=== PATIENT | female | born 1945 | race Caucasian/White ===

== ENCOUNTER 2021-04-23 15:13 | Inpatient (IN) | payer MEDICARE, MEDICAID ==
[~2021-04-23] VITALS: Ht 167.6 cm; Wt 87.6 kg
[2021-04-23 15:55] LABS: Basophils # (auto) 0 10 ^3/uL (0-0.2); Basophils % (auto) 0.2 % (0.0-2.0); Eosinophils # (auto) 0.1 10 ^3/uL (0-0.8); Hematocrit 41.1 % (36.0-46.0); Hemoglobin 14.1 g/dL (12.2-16.2); Lymphocytes # (auto) 2.3 10 ^3/uL (0.4-5.4); Lymphocytes % (auto) 21.8 % (10.0-50.0); Mean Corpuscular Hemoglobin 29.8 pg (28.0-32.0); Mean Corpuscular Hgb Conc. 34.2 g/dL (32.0-36.0); Monocytes # (auto) 0.5 10 ^3/uL (0-1.3); Monocytes % (auto) 5.1 % (0.0-12.0); Neutrophils # (auto) 7.6 10 ^3/uL (1.6-8.6); Neutrophils % (auto) 71.9 % (37.0-80.0); Nucleated Red Blood Cells % 0.1 %; Platelet Count (auto) 228 10^3/uL (140-450); Red Blood Cells 4.72 10^6/uL (4.0-5.20); Red Cell Distribution Width 14.6 % (11.8-14.3); White Blood Cell 10.6 10^3/uL (4.4-10.8)
[2021-04-23 16:12] LABS: Albumin 3.4 g/dL (3.4-5.0); BUN/Creatinine Ratio 30.8; Calcium 8.7 mg/dL (8.5-10.1); Potassium 3.7 mmol/L (3.5-5.1)
[2021-04-23 16:17] LABS: Bilirubin, Total 0.6 mg/dL (0.2-1.0); Total Protein 7.5 g/dL (6.4-8.2)
[2021-04-23] MEDS ORDERED: LISI20TA28 PO (17:48)
[2021-04-23] MEDS ORDERED: HYDR25TA5 PO (17:48)
[2021-04-23] MEDS ORDERED: MORPHINE SULF INJ 2 MG/ML SYRINGE 1ML IV PRN (18:00)
[2021-04-23] MEDS ORDERED: NITROGLYCERIN 0.4 MG SL TAB SL PRN (18:00)
[2021-04-23] MEDS: SODIUM CHLORIDE 0.9% 1,000 ML IV SCH (19:50)
[2021-04-23 20:29] VITALS: BP 125/67
[2021-04-23 22:00] VITALS: BP 123/95
[2021-04-23] MEDS ORDERED: BUDESONIDE (INHALATION) 0.5 MG/2 ML NEB NEB SCH (22:00)
[2021-04-23] MEDS: HYDROcodone-ACET 10/325MG TAB PO PRN (23:39)
[2021-04-23] MEDS: DexAMETHasone SOD PHOS 10MG/1ML VIAL INJ IV SCH (23:40)
[2021-04-23] MEDS: DOXYCYCLINE 100 MG TAB/CAP PO SCH (23:40)
[2021-04-24] VITALS (7 sets, daily range): BP systolic 120–130; BP diastolic 78–87
[2021-04-24] MEDS ORDERED: BUDESONIDE (INHALATION) 0.5 MG/2 ML NEB ONE (09:45)
[2021-04-24] MEDS ORDERED: IVERMECTIN 3 MG TAB PO ONE (10:00)
[2021-04-24] MEDS: BUDESONIDE (INHALATION) 0.5 MG/2 ML NEB NEB SCH ×2 (10:00→22:54)
[2021-04-24] MEDS: DOXYCYCLINE 100 MG TAB/CAP PO SCH ×2 (10:03→21:30)
[2021-04-24] MEDS: DexAMETHasone SOD PHOS 10MG/1ML VIAL INJ IV SCH ×2 (10:03→21:31)
[2021-04-24] MEDS: SODIUM CHLORIDE 0.9% 1,000 ML IV SCH (14:12)
[2021-04-24] MEDS: HYDROcodone-ACET 10/325MG TAB PO PRN (21:30)
[2021-04-25 05:00] VITALS: BP 130/87
[2021-04-25 09:00] VITALS: BP 110/78
[2021-04-25] MEDS: BUDESONIDE (INHALATION) 0.5 MG/2 ML NEB NEB SCH ×2 (10:03→18:39)
[2021-04-25] MEDS: DOXYCYCLINE 100 MG TAB/CAP PO SCH ×2 (12:54→20:22)
[2021-04-25] MEDS: DexAMETHasone SOD PHOS 10MG/1ML VIAL INJ IV SCH ×2 (12:55→20:22)
[2021-04-25] MEDS: SODIUM CHLORIDE 0.9% 1,000 ML IV SCH (12:55)
[2021-04-25 13:00] VITALS: BP 144/85
[2021-04-25 17:00] VITALS: BP 130/76
[2021-04-25] MEDS: HYDROcodone-ACET 10/325MG TAB PO PRN (20:23)
[2021-04-25 22:00] VITALS: BP 133/88
[2021-04-26 05:00] VITALS: BP 104/68
[2021-04-26 08:50] VITALS: BP 109/50
[2021-04-26] MEDS: HYDROcodone-ACET 10/325MG TAB PO PRN ×2 (09:41→21:10)
[2021-04-26] MEDS: DexAMETHasone SOD PHOS 10MG/1ML VIAL INJ IV SCH ×2 (09:41→21:09)
[2021-04-26] MEDS: DOXYCYCLINE 100 MG TAB/CAP PO SCH ×2 (09:41→21:10)
[2021-04-26] MEDS: BUDESONIDE (INHALATION) 0.5 MG/2 ML NEB NEB SCH ×2 (10:09→22:15)
[2021-04-26 13:00] VITALS: BP 157/82
[2021-04-26] MEDS: SODIUM CHLORIDE 0.9% 1,000 ML IV SCH (13:20)
[2021-04-26 13:25] LABS: Basophils # (auto) 0 10 ^3/uL (0-0.2); Basophils % (auto) 0.2 % (0.0-2.0); Eosinophils # (auto) 0 10 ^3/uL (0-0.8); Hematocrit 44.9 % (36.0-46.0); Hemoglobin 15.2 g/dL (12.2-16.2); Lymphocytes # (auto) 0.5 10 ^3/uL (0.4-5.4); Mean Corpuscular Hemoglobin 29.3 pg (28.0-32.0); Mean Corpuscular Hgb Conc. 33.8 g/dL (32.0-36.0); Mean Corpuscular Volume 86.6 fL (80.0-100.0); Monocytes # (auto) 0.4 10 ^3/uL (0-1.3); Neutrophils # (auto) 11.5 10 ^3/uL (1.6-8.6); Neutrophils % (auto) 92.8 % (37.0-80.0); Nucleated Red Blood Cells % 0.1 %; Platelet Count (auto) 263 10^3/uL (140-450); Red Blood Cells 5.19 10^6/uL (4.0-5.20); Red Cell Distribution Width 14.5 % (11.8-14.3); White Blood Cell 12.3 10^3/uL (4.4-10.8)
[2021-04-26 13:36] LABS: Albumin 3.5 g/dL (3.4-5.0); Calcium 9.1 mg/dL (8.5-10.1); Potassium 4.1 mmol/L (3.5-5.1)
[2021-04-26 13:40] LABS: BUN/Creatinine Ratio 33.3; Bilirubin, Total 0.5 mg/dL (0.2-1.0); Total Protein 7.6 g/dL (6.4-8.2)
[2021-04-26 16:50] VITALS: BP 149/102
[2021-04-26 22:00] VITALS: BP 119/85
[2021-04-26] MEDS ORDERED: LISINOPRIL 20 MG TAB PO SCH (22:00)
[2021-04-27] VITALS (8 sets, daily range): BP systolic 100–133; BP diastolic 71–86
[2021-04-27] MEDS: DexAMETHasone SOD PHOS 10MG/1ML VIAL INJ IV SCH (10:20)
[2021-04-27] MEDS: DOXYCYCLINE 100 MG TAB/CAP PO SCH (10:20)
[2021-04-27] MEDS: BUDESONIDE (INHALATION) 0.5 MG/2 ML NEB NEB SCH (10:32)
[2021-04-27] MEDS: HYDROcodone-ACET 10/325MG TAB PO PRN (17:08)
== END 2021-04-27 19:22 | disposition home or self-care (01) | DRG 143 ==
LOC: EDBD 15:13 → ER 15:13 → TELE 17:48 → TELE-EAST 21:28
PROVIDERS: ADMIT Internal Medicine Cardiovascular Disease; ATTEND Internal Medicine Cardiovascular Disease
DX: T79.7XXA Traumatic subcutaneous emphysema, initial encounter (principal); I48.0 Paroxysmal atrial fibrillation; I49.5 Sick sinus syndrome; J93.9 Pneumothorax, unspecified; N18.30 Chronic kidney disease, stage 3 unspecified; Z20.822 Contact with and (suspected) exposure to COVID-19; I12.9 Hypertensive chronic kidney disease with stage 1 through stage 4 chronic kidney disease, or unspecified chronic kidney disease; E78.5 Hyperlipidemia, unspecified; Z95.0 Presence of cardiac pacemaker; Z88.0 Allergy status to penicillin; Z88.2 Allergy status to sulfonamides; Z79.899 Other long term (current) drug therapy
CPT/HCPCS: 36415; 71045; 80053; 84484; 85025; 87081; 87426; 93005; 94640; 96360; G0378; J1100

== ENCOUNTER → 2021-05-10 | Outpatient (CLI) | payer MEDICARE, MEDICAID ==
[~2021-05-10] MED LIST: HYDR25TA5 PO; LISI20TA28 PO
== END | disposition home or self-care (01) ==
LOC: Rad HDHVI 10:38
PROVIDERS: ATTEND Internal Medicine Cardiovascular Disease
DX: J43.9 Emphysema, unspecified (principal); J84.89 Other specified interstitial pulmonary diseases; R06.02 Shortness of breath
CPT/HCPCS: 71046

== ENCOUNTER 2022-01-10 17:27 | Emergency (ER) | payer MEDICARE, MEDICAID ==
[~2022-01-10] VITALS: Ht 167.6 cm; Wt 79.4 kg
[2022-01-10 19:59] LABS: Basophils # (auto) 0.2 10 ^3/uL (0-0.2); Basophils % (auto) 1.7 % (0.0-2.0); Eosinophils # (auto) 0 10 ^3/uL (0-0.8); Eosinophils % (auto) 0.1 % (0.0-7.0); Hematocrit 45.1 % (36.0-46.0); Hemoglobin 15.7 g/dL (12.2-16.2); Lymphocytes # (auto) 0.4 10 ^3/uL (0.4-5.4); Lymphocytes % (auto) 3.8 % (10.0-50.0); Mean Corpuscular Hemoglobin 29.2 pg (28.0-32.0); Mean Corpuscular Hgb Conc. 34.7 g/dL (32.0-36.0); Monocytes # (auto) 0.2 10 ^3/uL (0-1.3); Monocytes % (auto) 1.5 % (0.0-12.0); Neutrophils % (auto) 92.9 % (37.0-80.0); Red Blood Cells 5.36 10^6/uL (4.0-5.20); Red Cell Distribution Width 13.8 % (11.8-14.3); White Blood Cell 11.8 10^3/uL (4.4-10.8)
[2022-01-10 20:15] LABS: Albumin 3.7 g/dL (3.4-5.0); Calcium 9.2 mg/dL (8.5-10.1); Potassium 3.8 mmol/L (3.5-5.1)
[2022-01-10 20:21] LABS: BUN/Creatinine Ratio 25.8; Bilirubin, Total 0.5 mg/dL (0.2-1.0); Total Protein 8.2 g/dL (6.4-8.2)
[2022-01-10 21:42] VITALS: BP 97/66
== END 2022-01-10 22:40 | disposition home or self-care (01) ==
LOC: ER 17:27
DX: R53.1 Weakness (principal); I10 Essential (primary) hypertension; Z95.0 Presence of cardiac pacemaker; Z79.899 Other long term (current) drug therapy; Z88.0 Allergy status to penicillin; Z88.2 Allergy status to sulfonamides
CPT/HCPCS: 36415; 70450; 71045; 80053; 84484; 85025; 93005

== ENCOUNTER 2024-02-20 16:15 | Emergency (ER) | payer MEDICARE, MEDICAID ==
[~2024-02-20] VITALS: Ht 167.6 cm; Wt 83.0 kg
[2024-02-20 16:15] VITALS: BP 172/91
[~2024-02-20 16:15] MED LIST changes: -LISI20TA28 PO; +LISI20TA56 PO
[2024-02-20 18:27] LABS: Alanine Aminotransferase 27 U/L (7-40); Albumin 4.6 g/dL (3.2-4.8); Alkaline Phosphatase 98 U/L (46-116); Anion Gap 7 (5-15); Aspartate Aminotransferase 25 U/L (13-40); BUN/Creatinine Ratio 12.5 (10.0-20.0); Bilirubin, Total 0.4 mg/dL (0.2-1.0); Blood Urea Nitrogen 11 mg/dL (9-23); Calcium 9.8 mg/dL (8.5-10.1); Carbon Dioxide 28 mmol/L (20-30); Chloride 106 mmol/L (98-107); Glucose 110 mg/dL (74-106); Potassium 3.9 mmol/L (3.5-5.1); Sodium 141 mmol/L (136-145); Total Protein 6.8 g/dL (5.7-8.2)
[2024-02-20 18:30] LABS: Basophils # (auto) 0.1 10 ^3/uL (0-0.2); Basophils % (auto) 0.8 % (0.0-2.0); Eosinophils # (auto) 0.2 10 ^3/uL (0-0.8); Eosinophils % (auto) 2.5 % (0.0-7.0); Hematocrit 45.7 % (36.0-46.0); Lymphocytes # (auto) 2.5 10 ^3/uL (0.4-5.4); Mean Corpuscular Volume 87.9 fL (80.0-100.0); Monocytes # (auto) 0.6 10 ^3/uL (0-1.3); Monocytes % (auto) 6.9 % (0.0-12.0); Neutrophils % (auto) 63.8 % (37.0-80.0); Nucleated Red Blood Cells % 0.2 %; Red Blood Cells 5.19 10^6/uL (4.0-5.20); White Blood Cell 9.4 10^3/uL (4.4-10.8)
[2024-02-20 18:57] LABS: Magnesium 2.1 mg/dL (1.6-2.6)
[2024-02-20 19:17] VITALS: PULSE 101
[2024-02-20 21:47] LABS: Urine Bacteria None Seen /hpf (None Seen)
[2024-02-20 22:04] LABS: Urine Blood Negative /uL (Negative); Urine Clarity Clear (Clear); Urine Color Light-Yellow (Yellow); Urine Protein, UAD TRACE (Negative); Urine Specific Gravity 1.014 (1.001-1.035); Urine Urobilinogen Normal (Negative); Urine WBC 2 /hpf (0 - 5); Urine pH 6.5 (5.0-9.0)
[2024-02-20] MEDS ORDERED: ALBUMIN 25% 100 ML IV ONE (22:30)
[2024-02-20] MEDS ORDERED: methylPREDNISolone SOD SUCC 125 MG/2 ML VL IV ONE (22:30)
[2024-02-20 22:55] VITALS: RESP 20; O2SAT 95
[2024-02-20] MEDS: IPRATROPIUM BROM 0.5 MG/2.5ML INH SOL NEB ONE (22:55)
[2024-02-20] MEDS: IPRATROPIUM BROM 0.5 MG/2.5ML INH SOL ONE (22:56)
[2024-02-20] MEDS ORDERED: NITROGLYCERIN 0.4 MG SL TAB SL PRN (23:45)
[2024-02-20] MEDS ORDERED: MORPHINE SULFATE INJ 2 MG/ml SYRG IV PRN (23:45)
== END 2024-02-21 00:29 | disposition left against medical advice (07) ==
LOC: ER 16:15 → TELE 23:48 → UNDOADMIN 23:48 → ER 02-21 00:29
DX: R07.89 Other chest pain (principal); R53.1 Weakness; I10 Essential (primary) hypertension; J44.9 Chronic obstructive pulmonary disease, unspecified; I48.91 Unspecified atrial fibrillation; Z98.890 Other specified postprocedural states; Z88.0 Allergy status to penicillin; Z88.8 Allergy status to other drugs, medicaments and biological substances; Z79.899 Other long term (current) drug therapy
CPT/HCPCS: 36415; 71045; 80053; 81001; 83735; 83880; 84484; 85025; 93005; 94640; 99285; J7644; G0378

== ENCOUNTER → 2024-04-18 | Outpatient (CLI) | payer MEDICARE, MEDICAID | END | disposition home or self-care (01) | LOC: Rad HDHVI 11:28 | PROVIDERS: ATTEND Internal Medicine Cardiovascular Disease | DX: J32.9 Chronic sinusitis, unspecified (principal) | CPT/HCPCS: 70220 ==

== ENCOUNTER → 2024-05-30 | Outpatient (CLI) | payer MEDICARE, MEDICAID | END | disposition home or self-care (01) | LOC: Rad HDHVI 10:23 | PROVIDERS: ATTEND Internal Medicine Cardiovascular Disease | DX: J01.90 Acute sinusitis, unspecified (principal) | CPT/HCPCS: 70486 ==